=== PATIENT | male | born 1955 ===

== ENCOUNTER 2022-03-17 08:56 | Outpatient (REF) | payer MEDICARE, SELFPAY ==
--- NOTE | 2022-03-17 09:03 | EMG_ITS ---
Right median and ulnar motor and sensory studies were performed. Right radial sensory study was performed and paraspinal muscles were tested with a needle. IMPRESSION: 1. [id number] right median neuropathy across carpal tunnel. 2. Mild right ulnar neuropathy across cubital tunnel. MD GARTH Menard/SERGIO / [phone]
== END 2022-03-17 08:57 | disposition home or self-care (01) ==
LOC: HO.NEURO 08:56
PROVIDERS: Visit Provider Internal Medicine
DX: R20.0 Anesthesia of skin (principal)
CPT/HCPCS: 95886; 95909

== ENCOUNTER → 2023-03-01 09:11 | Outpatient (BNVA) | payer MEDICARE, SELFPAY | PROVIDERS: PCP Internal Medicine; Referring Provider Internal Medicine; Visit Provider Internal Medicine | DX: R07.9 Chest pain, unspecified (principal); E78.5 Hyperlipidemia, unspecified | CPT/HCPCS: 93005; 99202 ==

== ENCOUNTER → 2023-03-28 12:43 | Outpatient (REF) | payer MEDICARE, SELFPAY ==
--- NOTE | 2023-03-28 12:46 | CA_ITS ---
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 Study Quality: Adequate ECG Rhythm: Sinus Conclusions: - The left ventricular systolic function is normal. The calculated ejection fraction is 61% by biplane method. - No obvious valvular pathology seen on this study. Findings Left Ventricle Normal left ventricular cavity size. There is normal left ventricular wall thickness. The left ventricular systolic function is normal. The calculated ejection fraction is 61% by biplane method. Diastolic function is normal for age. Cannot exclude basal inferior hypokinesis. Right Ventricle Normal right ventricular cavity size and systolic function. Atria Both atria are normal in size. Aortic Valve There is a normal trileaflet aortic valve. There is no aortic valve stenosis. There is trace (trivial) aortic valve regurgitation. Mitral Valve The mitral valve appears normal. There is trace mitral valve regurgitation. There is no mitral valve stenosis. Pulmonic Valve The pulmonic valve is likely normal. Tricuspid Valve Normal tricuspid valve structure. There is trace tricuspid valve regurgitation. There is no evidence of pulmonary hypertension. Great Vessels There is mild dilatation of the ascending aorta measuring 3.80 cm. Venous The inferior vena cava is normal in size and collapses greater than 50% with inspiration. There is evidence of a dilated coronary sinus. Pericardium/Pleural There is no evidence of pericardial effusion. Prior Study Comparison No prior study available for comparison. Recommendations, Care & Conclusions No obvious valvular pathology seen on this study. Measurements 2D Linear Measurements IVSd: 0.92 0.6-0.9/0.6-1.0 cm LVIDd: 4.44 3.9-5.3/4.2-5.9 cm LVIDd Index: 2.22 2.4-3.2/2.2-3.1 cm/m2 LVIDs: 2.61 2.0-3.6 cm LVPWd: 0.88 0.7-1.1 cm LA Diam: 3.50 2.7-3.8/3.0-4.0 cm LAIDs Index: 1.75 1.5-2.3 cm/m2 LV Mass: 161.30 67-162/88-224 g LV Mass Index: 80.65 43-95/49-115 g/m2 LVOT Diam: 2.50 3.0+(-)1.3 cm 2D Systolic Function EF 4C: 66.00 >55% EF 2C: 54.60 >55% EF BiP: 60.60 >55% Mitral Valve MV Pk E: 0.60 MV PK A: 0.78 MV Decel Time: 237.00 E/A: 0.80 E'Lateral: 6.42 E'Medial: 5.87 E/E' Med: 10.30 E/E' Lat: 9.40 PHT: 70.00 MVA PHT: 3.14 Decel [place]: 2.54 Aortic Valve AoV Pk Fareed: 1.18 AoV Mn Fareed: 0.78 AoV VTI: 0.28 AoV Pk Grad: 6.00 Aov Mn Grad: 3.00 ADRIÁN Cont.VTI: 3.41 LVOT LVOT Pk Fareed: 0.82 LVOT Mn Fareed: 0.54 LVOT VTI: 0.20 LVOT Pk Grad: 3.00 LVOT Mn Grad: 1.00 LVOT Diam: 2.50 LVOT Area: 4.91 Diastolic Function MV Pk E: 0.60 MV Pk A: 0.78 E/A: 0.80 E'Medial: 5.87 E/E' Med: 10.30 E' Laterial: 6.42 E/E' Lat: 9.40 Right Ventricle TAPSE (mm): 35.00 TVS' Fareed: 13.30 Tricuspid Valve TR Pk Fareed: 2.49 TR Pk Grad: 25.00 RA Press: 8.00 RVSP: 33.00 Great Vessels Aorta Sinus of Valsalva: 3.70 2.0-3.5 cm Ao Asc: 3.80 2.1-3.4 cm Pulmonary Valve PV Pk Fareed: 1.14 Peak PV Grad: 5.00 Updated in Other Vendor System with Status of Final Ziyad Krishnan MD electronically signed on 03/30/2023 11:27:21 AM with status of Final
== END ==
LOC: HO.CARD 12:43
PROVIDERS: PCP Internal Medicine; Visit Provider Internal Medicine
DX: R07.9 Chest pain, unspecified (principal); I25.10 Atherosclerotic heart disease of native coronary artery without angina pectoris
CPT/HCPCS: 93306

== ENCOUNTER 2023-05-30 09:11 | Outpatient (AMB) | payer MEDICARE, SELFPAY ==
--- NOTE | 2023-05-30 09:13 | A.OFFVIS_ITS ---
Intake Vital Signs 05/30/23 09:14 Height 5 ft 8.5 in Weight 167 lb 15.876 oz BMI 25.2 BP 106/70 Blood Pressure Location Lt brachial Position Sitting Pulse 74 Intake Visit Reasons: 3 mth f/up CTA/echo/[facility] Intake Note: follow up Climatology Teacher Required: No Accompanied by: Daughter Allergies No Known Allergies Allergy (Verified 05/30/23 09:14) Medication List - Last Reconciled 05/30/23 by Ziyad Krishnan MD No Known Home Meds HPI HPI Comments History of Present Illness Details Daryl returns for follow-up. In the past, was seen regarding hyperlipidemia and chest pain. He is French-speaking only and daughter is the main blender / cook. He was describing rather exertional type chest pains but intermittent. After this, coronary CTA was range. It seems that after the IV was put in, he had a vasovagal reaction and he was actually admitted. Subsequently, CT was not performed at all. After that hospitalization, he has not had any further chest pains. With regard to the hyperlipidemia, high cholesterol but has not been able tolerate statins in the past. [facility] Medical History (Updated 03/01/23 @ 09:48 by Ziyad Krishnan MD) Hyperlipidemia, unspecified Family History Mother No problems noted. Father HTN (hypertension) Heart problem Social History Alcohol intake: never Patient Tobacco Use Status: Never used Tobacco Review of Systems Const Denies weakness ENT Denies dizziness Card Denies chest pain, Denies chest pain with activity, Denies syncope, Denies rapid heart rate, Denies pedal edema, Denies edema, Denies leg edema, Denies lightheadedness, Denies palpitations, Denies dyspnea, Denies dyspnea on exertion and Denies orthopnea Resp Denies cough, Denies dyspnea and Denies dyspnea on exertion GI Denies hematochezia and Denies change in stool character Musc Denies abnormal gait, Denies muscle cramps, Denies muscle weakness, Denies numbness, Denies radiating pain into limb and Denies tingling Neuro Denies abnormal gait, Denies dizziness, Denies syncope, Denies numbness, Denies tingling and Denies weakness Endo Denies palpitations Physical Exam Vital Signs: Last Vital Signs Pulse 74 05/30/23 09:14 BP 106/70 05/30/23 09:14 BMI result Body Mass Index 25.2 Const General: comfortable and no acute distress Orientation/consciousness: patient oriented x3 HEENT Other: Unremarkable Head: Yes normal to inspection Neck Neck: Yes normal visual inspection Chest Chest palpation & inspection: normal inspection of the chest Resp Auscultation: clear to auscultation bilaterally Cardio Palpation: normal PMI Heart sounds: S1 normal heart sound present, S2 normal heart sound present, no gallops, no murmurs and no rubs GI Palpation (GI): Soft to palpation Back/Spine/Pelvis Other: unremarkable Skin General skin exam: no rashes or lesions noted Neuro General: patient oriented x3 Extrem General: Yes normal to inspection Psych Mental Status: mental status grossly normal Assessment & Plan Assessment & Plan (1) Exertional chest pain: Code(s): R07.9 - Chest pain, unspecified Plan: Could not complete the coronary CTA due to vasovagal reaction/syncope admission to the hospital. We discussed about further options. It seems that he could get a vasovagal syncope during times of IV but does not happen all the time. We discussed about a diagnostic catheterization but patient would rather get something noninvasive 1st. Hence probably try an exercise stress echocardiog denise, possibly without IV use to prevent another vasovagal episode. However, if suboptimal images may still need IV. (2) Hyperlipidemia, unspecified: Code(s): E78.5 - Hyperlipidemia, unspecified Plan: History of statin intolerance. Has tried atorvastatin and rosuvastatin in the past. May need Repatha or Praluent in the future. Can await testing 1st. Last LDL 185 mg/dL. Prior to that 220 mg dL. Triglycerides 135 mg/dL. HDL 52 mg dL. Plan Total time spent including review of all the [facility] records, discussion with family, counseling, documentation, coordination of care-34 minutes. Orders: Orders CA echo stress exercise Today R07.9 - Chest pain, unspecified Coding Level of Care Code Est Pt Level 4 (01710) Diagnoses Exertional chest pain R07.9 Hyperlipidemia, unspecified E78.5
[2023-05-30 09:14] VITALS: BP 106/70; PULSE 74; BMI 25.2
== END 2023-05-30 09:34 | disposition home or self-care (01) ==
PROVIDERS: Visit Provider Internal Medicine
DX: R07.9 Chest pain, unspecified (principal); E78.5 Hyperlipidemia, unspecified
CPT/HCPCS: 99214

== ENCOUNTER → 2023-05-30 09:11 | Outpatient (BNVA) | payer MEDICARE, SELFPAY | PROVIDERS: Visit Provider Internal Medicine | DX: R07.9 Chest pain, unspecified (principal); E78.5 Hyperlipidemia, unspecified | CPT/HCPCS: 99212 ==

== ENCOUNTER → 2023-08-21 10:47 | Outpatient (REF) | payer MEDICARE, SELFPAY ==
--- NOTE | 2023-08-21 10:50 | CA_ITS ---
Acquisition Time: 2023-08-21 11:08:29 Total Exercise Time: 00:07:06 Test Indications: CHEST PAIN Medications: NONE Protocol: DANIELLE Max HR: 137 BPM 90% of Pred: 151 BPM Max BP: 142/062 mmHG Max Work Load: 8.7 METS Exercise stress test exercise 7 min 6 sec of Danielle protocol 88% MPHR, without angnal symptoms, without arrhythmias, with normotensive response to exercise, without EKG changes. Echo images obtained by tech at rest and immedately post peak exercise. Test reviewed with Dr. Krishnan. Referred By: Ziyad Krishnan Overread By: Rosie Magallon
== END ==
LOC: HO.CARD 10:47
PROVIDERS: PCP Internal Medicine; Visit Provider Internal Medicine
DX: R07.9 Chest pain, unspecified (principal)
CPT/HCPCS: 93017; 93350

== ENCOUNTER → 2023-08-21 10:50 | Outpatient (BNV) | payer MEDICARE, SELFPAY | PROVIDERS: PCP Internal Medicine; Visit Provider Nurse Practitioner | DX: R07.9 Chest pain, unspecified (principal) | CPT/HCPCS: 93016; 93018; 93350 ==

== ENCOUNTER 2023-12-07 14:50 | Outpatient (AMB) | payer MEDICARE, SELFPAY ==
[2023-12-07 14:55] VITALS: BP 110/78; PULSE 70; BMI 26.1
--- NOTE | 2023-12-07 14:55 | A.OFFVIS_ITS ---
Intake Vital Signs 12/07/23 14:55 Height 5 ft 8.5 in Weight 174 lb 6.17 oz BMI 26.1 BP 110/78 Blood Pressure Location Lt brachial Position Sitting Pulse 70 Intake Visit Reasons: Follow up Intake Note: follow up Airline Hostess Required: No Accompanied by: Daughter Allergies No Known Allergies Allergy (Verified 12/07/23 14:55) Medication List - Last Reconciled 12/07/23 by Ziyad Krishnan MD No Known Home Meds HPI HPI Comments History of Present Illness Details Daryl returns for follow-up. In the past, was seen regarding hyperlipidemia and chest pain. He is Iraqi-speaking only and daughter is the main home health clinician. He was describing rather exertional type chest pains but intermittent. After this, coronary CTA was arranged. It seems that after the IV was put in, he had a vasovagal reaction and he was actually admitted. Subsequently, CT was not performed at all. After that time, he has not had any further chest pains whatsoever. He states those symptoms are completely resolved. More recently, he underwent an exercise stress echocardiogram. With regard to the hyperlipidemia, but has not been able tolerate statins in the past. Daughter is the cloud automation tester and appropriate forms signed. [facility] Medical History (Updated 03/01/23 @ 09:48 by Ziyad Krishnan MD) Hyperlipidemia, unspecified Family History Mother No problems noted. Father HTN (hypertension) Heart problem Social History Alcohol intake: never Patient Tobacco Use Status: Never used Tobacco Review of Systems Const Denies weakness ENT Denies dizziness Card Denies chest pain, Denies chest pain with activity, Denies syncope, Denies rapid heart rate, Denies pedal edema, Denies edema, Denies leg edema, Denies lightheadedness, Denies palpitations, Denies dyspnea, Denies dyspnea on exertion and Denies orthopnea Resp Denies cough, Denies dyspnea and Denies dyspnea on exertion GI Denies hematochezia and Denies change in stool character Musc Denies abnormal gait, Denies muscle cramps, Denies muscle weakness, Denies numbness, Denies radiating pain into limb and Denies tingling Neuro Denies abnormal gait, Denies dizziness, Denies syncope, Denies numbness, Denies tingling and Denies weakness Endo Denies palpitations Physical Exam Vital Signs: Last Vital Signs Pulse 70 12/07/23 14:55 BP 110/78 12/07/23 14:55 BMI result Body Mass Index 26.1 Const General: comfortable and no acute distress Orientation/consciousness: patient oriented x3 HEENT Other: Unremarkable Head: Yes normal to inspection Neck Neck: Yes normal visual inspection Chest Chest palpation & inspection: normal inspection of the chest Resp Auscultation: clear to auscultation bilaterally Cardio Palpation: normal PMI Heart sounds: S1 normal heart sound present, S2 normal heart sound present, no gallops, no murmurs and no rubs GI Palpation (GI): Soft to palpation Back/Spine/Pelvis Other: unremarkable Skin General skin exam: no rashes or lesions noted Neuro General: patient oriented x3 Extrem General: Yes normal to inspection Psych Mental Status: mental status grossly normal Office Procedures EKG Details: EKG with possible sinus rhythm, sinus arrhythmia vs some PACs, leftward axis and nonspecific ST-T changes. [id number], Complete Assessment & Plan Assessment & Plan (1) Exertional chest pain: Code(s): R07.9 - Chest pain, unspecified Plan: Tried coronary CTA but could not complete as he had vasovagal reaction/syncope leading to hospitalization. Did not want any cardiac catheterization. More recently, exercise stress echocardiogram is within normal limits and no suggestion of hemodynamically significant lesions. Hence overall, initial encounter with description of exertional chest pain, but completely resolved in the last few months. Overall etiology unclear. If any recurrences, will need a diagnostic catheterization. Specifically discussed about this with daughter. (2) Hyperlipidemia, unspecified: Code(s): E78.5 - Hyperlipidemia, unspecified Plan: History of statin intolerance. Has tried atorvastatin and rosuvastatin in the past. Can consider Repatha or Praluent but not clear how he is going to take it with so much of language barrier as he does not speak [place]serr[place]ian. Last LDL 185 mg/dL. Prior to that 220 mg dL. Triglycerides 135 mg/dL. HDL 52 mg dL. At least try Zetia for now. Plan Total time spent including review of all the [facility] records, discussion with family, counseling, documentation, coordination of care-32 minutes. Orders: Orders Lipid Panel 3 Months E78.5 - Hyperlipidemia, unspecified LDL Cholesterol Direct 3 Months E78.2 - Mixed hyperlipidemia Medications: New ezetimibe (Zetia) 10 mg PO DAILY 90 tabs 3RF Coding Level of Care Code Est Pt Level 4 (65221) Diagnoses Exertional chest pain R07.9 Hyperlipidemia, unspecified E78.5 CPT Codes EKG - CPT: 61617-[id number], Complete ([id number])
== END 2023-12-07 15:11 | disposition home or self-care (01) ==
PROVIDERS: PCP Internal Medicine; Visit Provider Internal Medicine
DX: R07.9 Chest pain, unspecified (principal); E78.5 Hyperlipidemia, unspecified
CPT/HCPCS: 93010; 99214

== ENCOUNTER → 2023-12-07 14:50 | Outpatient (BNVA) | payer MEDICARE, SELFPAY | PROVIDERS: PCP Internal Medicine; Visit Provider Internal Medicine | DX: R07.9 Chest pain, unspecified (principal); E78.5 Hyperlipidemia, unspecified | CPT/HCPCS: 93005; 99212 ==

== ENCOUNTER 2024-07-18 15:28 | Outpatient (AMB) | payer MEDICARE, SELFPAY ==
--- NOTE | 2024-07-18 15:36 | MHC.OFFVIS ---
Vital Signs 07/18/24 15:40 Height 5 ft 8.5 in Weight 168 lb 6.931 oz BMI 25.2 BP 100/72 Blood Pressure Location Lt brachial Position Sitting Pulse 70 Pulse Source Pulse Oximeter Intake Visit Reasons: r/s x2 5 mos followup Financial Analysis Consultant Required: Yes Financial Analysis Consultant Services: Financial Analysis Consultant Offered & Declined Financial Analysis Consultant Name: deisy sutton core inserter Allergies [id number] Reductase Inhibitor Adverse Reaction (Severe, Verified 07/18/24 15:42) Muscle Pain Medication List - Last Reconciled 07/18/24 by Lisa Hayward NP-C No Known Home Meds HPI HPI r/s x2 5 mos followup: Details: Daryl is a 69-year-old male past medical history of hyperlipidemia, prior reports of exertional chest discomfort with normal stress test who presents for follow-up. Today he reports he has been doing very well overall. He has no chest discomfort at rest or with activity. He denies shortness of breath, PND, orthopnea or edema. No lightheadedness, presyncope, syncope. He walks 2 miles 3 times a week and 3 miles 2 times a week. He tolerates this activity well. He is compliant with his meds. He has no cardiac questions or concerns. Daughter is assisting with Indian interpretation at their request. Declined certified core inserter. [facility] Medical History Hyperlipidemia, unspecified Family History Mother No problems noted. Father HTN (hypertension) Heart problem Social History Alcohol intake: never Patient Tobacco Use Status: Never used Tobacco Review of Systems Const All systems reviewed & are unremarkable except as noted in HPI and below ENT Denies dizziness Card Denies chest pain, Denies chest pain at rest, Denies chest pain with activity, Denies rapid heart rate, Denies pedal edema, Denies edema, Denies leg edema, Denies lightheadedness, Denies palpitations, Denies dyspnea, Denies dyspnea on exertion and Denies orthopnea Resp Denies cough, Denies dyspnea and Denies dyspnea on exertion GI Denies hematochezia and Denies change in stool character Musc Denies abnormal gait, Denies limited range of motion, Denies muscle cramps, Denies muscle weakness, Denies numbness, Denies radiating pain into limb, Denies stiffness and Denies tingling Neuro Denies abnormal gait, Denies dizziness, Denies numbness and Denies tingling Endo Denies palpitations Physical Exam Vital Signs: Last Vital Signs Pulse 70 07/18/24 15:40 BP 100/72 07/18/24 15:40 BMI result Body Mass Index 25.2 Const General: cooperative, healthy appearing, comfortable and no acute distress Orientation/consciousness: patient oriented x3 Neck Neck: Yes normal visual inspection Resp Effort & Inspection: normal respiratory effort Auscultation: clear to auscultation bilaterally, no crackles, no rales, no rhonchi and no wheezes Cardio Jugular venous distension: no JVD Rate: regular rate Rhythm: regular rhythm Heart sounds: S1 normal heart sound present, S2 normal heart sound present, no murmurs and no rubs Neuro General: patient oriented x3 Extrem General: Yes normal to inspection, No no pedal edema and No calf tenderness Psych Appearance: grossly normal Mental Status: mental status grossly normal Speech and movement: Normal speech and movement present Assessment & Plan Assessment & Plan (1) Exertional chest pain: Code(s): R07.9 - Chest pain, unspecified Category: Medical Plan: Prior reports of chest discomfort with exertion. His EKG shows sinus rhythm with left anterior fascicular block, no acute ST or T-wave changes. He had an echocardiogram 04/14/2023 showing EF 60-65%, no regional wall motion abnormalities. A CTA of the coronary arteries was ordered however when he went he had a syncopal event following IV insertion which prompted admission. The CTA was never completed. He has not had recurrent syncope since that time. He then had a stress echocardiogram done on 08/21/2023 which showed exercise 7 minutes, no anginal symptoms, no EKG changes and no echo evidence of ischemia. Today he reports he has been doing very well with no chest discomfort at rest or with exertion. His prior chest discomfort has fully resolved. He is walking 2-3 miles 5 days a week which he tolerates without concerning symptoms. Blood pressure low normal at 100/72. He is not on any antihypertensives. In fact he takes no daily medications. His BMI is normal at 25.2. Spent time reviewing signs and symptoms of angina. Cardiac risk factor modification discussed. Emergency care if ever needed for symptoms. Cardiology follow-up as needed. (2) Hyperlipidemia, unspecified: Code(s): E78.5 - Hyperlipidemia, unspecified Category: Medical Plan: Reported history of hyperlipidemia. No recent labs for review. This is managed by his PCP. He does not take any daily medications. Plan Time spent on chart review, documentation, interview and assessment Coding Level of Care Code Est Pt Level 3 (19253) Diagnoses Exertional chest pain R07.9 Hyperlipidemia, unspecified E78.5 Time Spent (min) 24
[2024-07-18 15:40] VITALS: BP 100/72; PULSE 70; BMI 25.2
== END 2024-07-18 16:11 | disposition home or self-care (01) ==
PROVIDERS: PCP Internal Medicine; Visit Provider Nurse Practitioner Family
DX: R07.9 Chest pain, unspecified (principal); E78.5 Hyperlipidemia, unspecified
CPT/HCPCS: 99213

== ENCOUNTER → 2024-07-18 15:28 | Outpatient (BNVA) | payer MEDICARE, SELFPAY | PROVIDERS: PCP Internal Medicine; Visit Provider Nurse Practitioner Family | DX: R07.2 Precordial pain (principal); E78.5 Hyperlipidemia, unspecified | CPT/HCPCS: 99212 ==

== ENCOUNTER 2024-11-13 11:19 | Outpatient (AMB) | payer MEDICARE, SELFPAY ==
[2024-11-13 11:22] VITALS: BP 135/86; PULSE 80; BMI 26.9
--- NOTE | 2024-11-13 11:22 | MHC.OFFVIS ---
Vital Signs 11/13/24 11:22 Height 5 ft 8.5 in Weight 179 lb 7.3 oz BMI 26.9 BP 135/86 Blood Pressure Location Lt brachial Position Sitting Pulse 80 Intake Visit Reasons: Colonoscopy Screening Intake Note: New patient in office today for colonoscopy screening. CC: Patient had last colonoscopy about 5 years ago at [facility] [place] [facility] [place]. Per patient's daughter the patient feels bloated after eating, has heartburn, and a lot of gas. He also reports once in a while some acid reflux. Radiologic Technology Program Director Required: Yes Radiologic Technology Program Director Language: Gambian Radiologic Technology Program Director Name: daughter Accompanied by: Daughter Allergies [id number] Reductase Inhibitor Adverse Reaction (Severe, Verified 11/13/24 11:33) Muscle Pain HPI HPI Colonoscopy Screening: Details: 1-year-old male here for preprocedural meeting to discuss a screening colonoscopy. He is referred by [facility]. PMX High cholesterol * SURGICAL HISTORY Ot denies * ALLERGIES:NKDA * INXPOTECH LABS: None current TODAY'S VISIT Gambian #dtr translates per pt request. He had a prior colonoscopy 5 or more years ago at [facility] that was negative. He suffers a great deal of gas and bloating with anything he eats. No CIC or diarrhea. We discuss EPI and I print information from [facility]. They are to consider treating it but they certainly can come see me if they change their mind or consider an [id number]-oigknam digestive enzyme. He denies any cardiac or respiratory problems. The patient is naive to anesthesia and sedation in general. There are no infectious disease. There is no known family history colon cancer or polyps. [facility] Medical History Hyperlipidemia, unspecified Surgical History History of esophagogastroduodenoscopy (EGD) H/O colonoscopy Family History Mother No problems noted. Father HTN (hypertension) Heart problem Social History (Reviewed 11/13/24 @ 11:37 by Arsenio Sarmiento [facility]) Alcohol intake: never Patient Tobacco Use Status: Never used Tobacco Review of Systems Const Denies fatigue, Denies fever(s), Denies night sweats, Denies poor appetite and Denies weight loss ENT Reports Normal hearing present, Denies dental pain, Denies dysphagia, Denies hearing loss, Denies mouth pain, Denies odynophagia, Denies throat swelling, Denies tongue swelling and Reports other (Dentition adequate) Card Reports no additional complaints Resp Reports no additional complaints GI Details: Denies abdominal pain, Denies melena, Reports bloating, Denies hematochezia, Denies constipation, Denies GI cramping, Denies dysphagia, Reports excessive flatus, Denies early satiety, Denies heartburn, Denies diarrhea, Denies nausea, Denies odynophagia, Denies vomiting and Denies hematemesis Skin/Breast Denies pruritus, Denies lesions, Denies rash and Denies jaundice Neuro Reports Normal hearing present and Denies Abnormal speech present Endo Denies fatigue Aller/Immun Denies throat swelling and Denies tongue swelling Physical Exam Vital Signs: Last Vital Signs Pulse 80 11/13/24 11:22 BP 135/86 11/13/24 11:22 BMI result Body Mass Index 26.9 Const General: cooperative, no acute distress, well developed and well groomed Nutritional Appearance: average body habitus and well nourished Orientation/consciousness: oriented to person, oriented to place and oriented to time Limitations: language barrier HEENT Head: Yes normocephalic and Yes atraumatic Eyes General: appearance normal, both eyes and all related structures Pupils: Equal, round and reactive pupils present Neck Neck: Yes normal visual inspection and Yes no lymphadenopathy Thyroid: Thyroid normal Resp Effort & Inspection: normal respiratory effort and able to speak in complete sentences Auscultation: clear to auscultation bilaterally Cardio Rate: regular rate Rhythm: regular rhythm Heart sounds: Normal, physiologic split S2 sound present Peripheral pulses: radial pulses present and posterior tibial pulses present GI Inspection: No distended and No Abdominal panniculus present Palpation (GI): Soft to palpation, nontender, no guarding, not rigid and No hepatosplenomegaly present Percussion: Yes normal to percussion Auscultation: normal bowel sounds Rectal Exam - Male: Yes deferred Skin General skin exam: no rashes or lesions noted, turgor normal, skin not dry, no jaundice, No spider nevi and no striae Rashes: no rashes Nails: normal Neuro General: oriented to person, oriented to place and oriented to time Cranial nerves: Yes Equal, round and reactive pupils present and Yes Normal hearing present Speech: No Abnormal speech present Extrem General: Yes normal to inspection, No clubbing, No cyanosis and No edema Psych Appearance: grossly normal and well kempt Mental Status: mental status grossly normal Speech and movement: Normal speech and movement present Affect: normal affect Attitude: cooperative Thought process: Normal thought process present and not confabulating Thought content: Normal thought content present Insight: Fair insight present (Psych) Judgement: Fair judgement present (Psych) Assessment & Plan Assessment & Plan (1) Pre-op examination: Code(s): Z01.818 - Encounter for other preprocedural examination Category: Medical (2) Abdominal bloating: Code(s): R14.0 - Abdominal distension (gaseous) Category: Medical Plan Gambian #dtr translates per pt request. He had a prior colonoscopy 5 or more years ago at [facility] that was negative. He suffers a great deal of gas and bloating with anything he eats. No CIC or diarrhea. We discuss EPI and I print information from [facility]. They are to consider treating it but they certainly can come see me if they change their mind or consider an gtwn-tog-wjivxal digestive enzyme. He denies any cardiac or respiratory problems. The patient is naive to anesthesia and sedation in general. There are no infectious disease. There is no known family history colon cancer or polyps. Orders: Orders Complete Blood Count Auto Diff 07/01/24 E78.2 - Mixed hyperlipidemia Colonoscopy - GI Use Only Today Z01.818 - Encounter for other preprocedural examination Colonoscopy - GI Use Only Today Z01.818 - Encounter for other preprocedural examination Comprehensive Met. Panel 07/01/24 E78.2 - Mixed hyperlipidemia Medications: New peg 3350-electrolytes 236-22.74-6.74 -5.86 gram (Golytely) until fecal effluent is clear; do not exceed a total volume of 2,000 mL 240 mL PO Q10M 4,000 mL 0RF 1 day Z12.11 - Encounter for screening for malignant neoplasm of colon bisacodyl (Dulcolax (bisacodyl)) 10 mg (2 x 5 mg) PO BEDTIME 4 tabs 0RF 2 days Coding Level of Care Code New Pt Level 3 (00153) Diagnoses Pre-op examination Z01.818 Abdominal bloating R14.0
== END 2024-11-13 12:09 | disposition home or self-care (01) ==
PROVIDERS: PCP Internal Medicine; Visit Provider Nurse Practitioner
DX: Z01.818 Encounter for other preprocedural examination (principal); Z12.11 Encounter for screening for malignant neoplasm of colon; R14.0 Abdominal distension (gaseous)
CPT/HCPCS: 99024

== ENCOUNTER → 2024-11-13 11:19 | Outpatient (BNVA) | payer MEDICARE, SELFPAY | PROVIDERS: PCP Internal Medicine; Visit Provider Nurse Practitioner | DX: Z01.818 Encounter for other preprocedural examination (principal); R14.0 Abdominal distension (gaseous) | CPT/HCPCS: 99212 ==

== ENCOUNTER 2024-11-14 09:10 | Outpatient (REF) | payer OTHER, SELFPAY ==
[2024-11-14 11:32] LABS: MANUAL DIFF FLAG NO
[2024-11-14 11:34] LABS: Basophils Percent Auto 0.5 % (0-2); Eosinophils Absolute Auto 0.1 X10*3/uL (0.0-0.4); Eosinophils Percent Auto 2.2 % (0-4); Hematocrit 46.6 % (42.0-52.0); Hemoglobin 15.7 g/dl (14.0-18.0); Imm Gran Abs Auto 0.03 X10*3/uL (0.00-0.03); Imm Gran Pct Auto 0.5 % (0.0-0.4); Lymphocytes Absolute Auto 2.1 X10*3/uL (1.2-4.9); Lymphocytes Percent Auto 33.2 % (20-40); Mean Corpuscular HGB Conc 33.7 g/dl (31.0-36.0); Mean Corpuscular Volume 86.1 fL (80.0-98.0); Mean Platelet Volume 9.6 fL (9.4-12.4); Monocytes Absolute Auto 0.5 X10*3/uL (0.1-1.2); Monocytes Percent Auto 8.3 % (2-11); Neutrophils Absolute Auto 3.5 x10*3/uL (2.0-8.3); Neutrophils Percent Auto 55.3 % (45-73); Platelet Count 217 X10*3/uL (160-400); Red Blood Count 5.41 X10*6/uL (4.60-5.80); Red Cell Distribution Width 12.6 % (11.0-16.0); White Blood Count 6.3 X10*3/uL (4.8-10.8)
[2024-11-14 11:52] LABS: Alanine Aminotransferase 41 U/L (0-40); Albumin Level 4.1 g/dL (3.5-5.0); Anion Gap 9 (12-20); Aspartate Amino Transferase 34 U/L (5-37); Bilirubin Total 0.6 mg/dL (0.0-1.0); Blood Urea Nitrogen 14 mg/dL (9-16); Calcium 9.7 mg/dL (8.4-10.2); Carbon Dioxide 28 mmol/L (22-29); Chloride 108 mmol/L (96-108); Estimated Glomerular Filt Rate > 60; Glucose Random 97 mg/dL (60-115); Potassium 4.4 mmol/L (3.3-5.1); Sodium 141 mmol/L (135-145); Total Protein 7.5 g/dL (6.5-8.0)
[2024-11-14 12:28] LABS: Alkaline Phosphatase 114 U/L (39-117)
== END 2024-11-14 09:11 | disposition home or self-care (01) ==
LOC: HO.WFDLDS 09:10
PROVIDERS: Visit Provider Nurse Practitioner
DX: E78.2 Mixed hyperlipidemia (principal)
CPT/HCPCS: 36415; 80053; 85025

== ENCOUNTER 2025-09-25 12:03 | Outpatient (REF) | payer OTHER, SELFPAY ==
--- NOTE | ~2025-09-25 | XR_ITS ---
EXAMINATION: XR SHOULDER 2 OR MORE VIEWS LEFT HISTORY: left shoulder pain COMPARISON: There are no prior studies available for comparison. FINDINGS: Four views of the left shoulder are submitted. Osseous mineralization is normal. There is no fracture or dislocation. The glenohumeral joint is maintained. The AC joint is not well evaluated. The soft tissues are unremarkable. XR/XR shoulder LT min 2V IMPRESSION: Limited visualization of the AC joint. Otherwise unremarkable examination of the left shoulder. Electronically signed by: Manolo Russ MD 09/25/2025 12:26 PM AIDE XAVIER
--- NOTE | ~2025-09-25 | XR_ITS ---
EXAMINATION: XR FOOT 3 OR MORE VIEWS LEFT HISTORY: foot pain COMPARISON: There are no prior studies available for comparison. FINDINGS: Three views of the left foot are submitted. Osseous mineralization is normal. There is no fracture or dislocation. There is mild to moderate degenerative change of the 1st MTP joint with associated mild hallux valgus deformity. The soft tissues are unremarkable. XR/XR foot LT min 3V IMPRESSION: Mild to moderate degenerative change and mild hallux valgus deformity of the 1st MTP joint. Electronically signed by: Manolo Russ MD 09/25/2025 12:27 PM AIDE
== END 2025-09-25 12:04 | disposition home or self-care (01) ==
LOC: HO.HMGCX 12:03
PROVIDERS: PCP Internal Medicine; Visit Provider Internal Medicine
DX: M79.672 Pain in left foot (principal); M25.512 Pain in left shoulder; G89.29 Other chronic pain
CPT/HCPCS: 73030; 73630

== ENCOUNTER → 2025-09-25 12:06 | Outpatient (BNV) | payer OTHER, SELFPAY | PROVIDERS: PCP Internal Medicine; Visit Provider Radiology Diagnostic Radiology | DX: M25.512 Pain in left shoulder (principal); M19.072 Primary osteoarthritis, left ankle and foot; M20.12 Hallux valgus (acquired), left foot | CPT/HCPCS: 73030; 73630 ==